=== PATIENT | female | born 1970 | race Caucasian/White ===

== ENCOUNTER 2016-12-25 10:58 | Emergency (ER) | payer SELFPAY ==
[2016-12-25 11:01] VITALS: BP 161/70; PULSE 71; TEMP 98; BMI 26.9
--- NOTE | 2016-12-25 11:14 | PDOC ---
History of Present Illness - General Chief Complaint: Injury Stated Complaint: FALL/INJURY Time Seen by Provider: 12/25/16 11:13 History Source: Patient Exam Limitations: No Limitations - History of Present Illness Initial Comments: 12/25/16 11:14 CHIEF COMPLAINT: Fall HISTORY OF PRESENT ILLNESS: This is an otherwise healthy 46 year old female who presents via wheelchair complaining of left leg, hip, and shoulder pain s/p fall. She was standing on a stool cleaning when she suddenly felt a pain in her stomach, causing her to fall and strike her left side and her head. She did not lose consciousness. She denies LOC, dizziness, nausea, and visual changes. She no longer has abdominal pain. V/s on arrival are notable for BP 161/70. REVIEW OF SYSTEMS: GENERAL/CONSTITUTIONAL: No fever or chills. No weakness. No weight change. HEAD, EYES, EARS, NOSE AND THROAT: No change in vision. No ear pain or discharge. No sore throat. CARDIOVASCULAR: No chest pain or palpitations. RESPIRATORY: No cough, wheezing, or shortness of breath. GASTROINTESTINAL: No nausea, vomiting, diarrhea or constipation. Abdominal pain , yesterday and this morning, resolved. GENITOURINARY: No dysuria, frequency, or change in urination. MUSCULOSKELETAL: Left leg, hip, and shoulder pain. No neck pain or back pain. SKIN: No rash or easy bruising. NEUROLOGIC: Head trauma. No headache, vertigo, loss of consciousness, or loss of sensation. PSYCHIATRIC: No depression or anxiety. ENDOCRINE: No increased thirst. No abnormal weight change. HEMATOLOGIC/LYMPHATIC: No anemia, easy bleeding, or history of blood clots. ALLERGIC/IMMUNOLOGIC: No hives or skin allergy. No latex allergy. PHYSICAL EXAM: GENERAL: The patient is awake, alert, and fully oriented, in no acute distress. HEAD: Normal with no signs of trauma. ENT: Pupils equal, round and reactive to light, extraocular movements intact, sclera anicteric, conjunctiva clear. Neck supple. No midline cervical vertebral tenderness. LUNGS: Clear to auscultation bilaterally. Normal excursion. No respiratory distress or use of accessory muscles. CV: RRR, S1/S2, no MRG. Cap refill < 2 sec. ABDOMEN: Soft, non-distended, non-tender even to deep palpation. EXTREMITIES: Ecchymosis and tenderness to left lateral thigh. Mild left hip tenderness. Left posterior shoulder tenderness and pain with elevation/ abduction of the arm. Able to touch contralateral shoulder. NEUROLOGICAL: Normal speech. CN II-XII grossly intact. PSYCH: Normal mood, normal affect. SKIN: Warm, dry, normal turgor, no rashes or lesions noted. Past History - Past Medical History Allergies/Adverse Reactions: Allergies Allergy/AdvReac Type Severity Reaction Status Date / Time No Known Allergies Allergy Verified 12/25/16 11:02 Home Medications: Ambulatory Orders Ibuprofen [Motrin -] 600 mg PO QID PRN #28 tablet 12/25/16 - Psycho/Social/Smoking Cessation Hx Suicidal Ideation: No Smoking History: Never smoked Information on smoking cessation initiated: No *Physical Exam - Vital Signs Last Vital Signs Temp Pulse Resp BP Pulse Ox 98 F 71 18 161/70 100 12/25/16 10:59 12/25/16 10:59 12/25/16 10:59 12/25/16 10:59 12/25/16 10:59 Medical Decision Making - Medical Decision Making 12/25/16 11:30 A/P: 46 year old female s/p fall with multiple injuries. States fall was preceded by abdominal pain, but has no pain now and has no tenderness on exam. -Left femur, hip, shoulder xrays -Toradol 30mg IM for pain -Cold pack left thigh -Re-assess 12/25/16 12:30 Pain improved Xrays negative Followup instructions and return precautions reviewed *DC/Admit/Observation/Transfer Diagnosis at time of Disposition: Left leg pain Fall Qualifiers: Encounter type: initial encounter Qualified Code(s): W19.XXXA - Unspecified fall, initial encounter Shoulder pain, left Qualifiers: Chronicity: acute Qualified Code(s): M25.512 - Pain in left shoulder - Discharge Dispostion Disposition: HOME Condition at time of disposition: Improved Admit: No - Prescriptions Prescriptions: Ibuprofen [Motrin -] 600 mg PO QID PRN #28 tablet PRN Reason: Pain - Referrals Referrals: Ethel King MD [Staff Physician] - 1 week - Patient Instructions Printed Discharge Instructions: DI for Contusion Additional Instructions: -Your xrays are all normal -Take ibuprofen as prescribed for pain and inflammation -Put ice on the painful areas -Follow up with a primary care doctor (referral enclosed) -Return here for any new or concerning symptoms Print Language: [place]
[2016-12-25] MEDS ORDERED: KETOROLAC TROMETHAMINE 30 MG/1 ML VIAL IM ONE (11:25)
[2016-12-25] MEDS ORDERED: KETOROLAC TROMETHAMINE 30 MG/1 ML VIAL ONE (11:31)
== END 2016-12-25 12:34 | disposition home or self-care (01) ==
LOC: JERFT 10:58
PROC: 3E0233Z Introduction of Anti-inflammatory into Muscle, Percutaneous Approach (ICD-10-PCS; principal; 2016-12-25)
DX: S70.02XA Contusion of left hip, initial encounter (principal); W08.XXXA Fall from other furniture, initial encounter; Y93.E9 Activity, other interior property and clothing maintenance; Y92.038 Other place in apartment as the place of occurrence of the external cause
CPT/HCPCS: 73030-TC-LT; 73523-TC; 73552-TC-LT; 84703; 99281-25